=== PATIENT | male | born 1960 | race Caucasian/White ===

== ENCOUNTER 2017-10-06 17:21 | Emergency (ER) | payer OTHER ==
[2017-10-06 17:30] VITALS: RESP 18; TEMP 98.8
[2017-10-06 17:32] VITALS: BMI 32.8
--- NOTE | 2017-10-06 18:41 | ED PDOC ---
Arrival/HPI - General Chief Complaint: Lower Extremity Problem/Injury Time Seen by Provider: 10/06/17 17:42 Historian: Patient, Family EM Caveat: Language Barrier - History of Present Illness Narrative History of Present Illness (Text): 10/06/17 18:33 Pt is a 57 yr old male with no significant PMH BIBA for right leg pain x 3 days. Pt speaks only Maltese but has family at bedside to translate. Pt reports having insidious onset to pain of the right leg that is described as starting in the buttocks and radiating to the low back and down the right leg to the right midfoot. Worse on standing and walking and better on rest. Describes pain as burning and traveling between the low back and right foot. 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 Denies chest pain, shortness of breath, fever, chills, trauma, nausea, vomiting, diarrhea, change it bladder or bowel, saddle paresthesia, recent travel or any other complaint. Time/Duration: 24 hours Symptom Onset: Gradual Symptom Course: Worsening Quality: Aching, Pressure, Burning Severity Level: 8 Activities at Onset: Light Context: Home Past Medical History - Provider Review Nursing Documentation Reviewed: Yes - Travel History Have you recently traveled outside [place] w/in the past 3 mons?: No - Cardiac Hx Cardiac Disorders: No - Psychiatric Hx Substance Use: No Family/Social History - Physician Review Nursing Documentation Reviewed: Yes Family/Social History: Unknown Family HX Smoking Status: Former Smoker Hx Alcohol Use: No Hx Substance Use: No Allergies/Home Meds Allergies/Adverse Reactions: Allergies No Known Allergies Allergy (Verified 10/06/17 18:32) Review of Systems - Review of Systems Systems not reviewed;Unavailable: Language Barrier Constitutional: Normal Eyes: Normal ENT: Normal Respiratory: Normal. absent: SOB, Cough Cardiovascular: Normal. absent: Chest Pain, Palpitations, Edema, Calf Pain Gastrointestinal: Normal. absent: Abdominal Pain, Stool Changes, Constipation, Diarrhea, Nausea, Vomiting, Appetite Changes, Hematochezia, Hematemesis Genitourinary Male: Normal. absent: Dysuria, Frequency Musculoskeletal: Normal, Back Pain. absent: Arthralgias, Neck Pain, Joint Swelling, Myalgias Skin: Normal Neurological: Normal, Gait Changes. absent: Headache, Dizziness, Focal Weakness Endocrine: Normal Hemo/Lymphatic: Normal Psychiatric: Normal Physical Exam Vital Signs Reviewed: Yes Vital Signs Temp Pulse Resp BP Pulse Ox 10/06/17 21:28 62 18 124/76 98 10/06/17 17:29 98.8 F 60 18 130/70 99 Temperature: Afebrile Blood Pressure: Normal Pulse: Regular Respiratory Rate: Normal Appearance: Positive for: Well-Appearing, Non-Toxic, Comfortable Pain Distress: Moderate Mental Status: Positive for: Alert and Oriented X 3 - Systems Exam Head: Present: Atraumatic, Normocephalic Pupils: Present: PERRL Extroacular Muscles: Present: EOMI Conjunctiva: Present: Normal Mouth: Present: Moist Mucous Membranes Neck: Present: Normal Range of Motion. No: Meningeal Signs, MIDLINE TENDERNESS , Paraspinal Tenderness Respiratory/Chest: Present: Clear to Auscultation, Good Air Exchange. No: Respiratory Distress, Accessory Muscle Use Cardiovascular: Present: Regular Rate and Rhythm, Normal S1, S2. No: Murmurs Abdomen: Present: Normal Bowel Sounds. No: Tenderness, Distention, Peritoneal Signs, Rebound, Guarding, McBurney's Point Tender, Rovsing's Sign Present Back: Present: Normal Inspection, Pain with Leg Raise (right side). No: CVA Tenderness, Midline Tenderness, Paraspinal Tenderness, Decubitus Ulcer Upper Extremity: Present: Normal Inspection, Normal ROM, NORMAL PULSES. No: Cyanosis, Edema Lower Extremity: Present: Normal Inspection, NORMAL PULSES, Normal ROM, Neurovascularly Intact (strength of LE 5/5 on active resisted and SILT throughout), Capillary Refill < 2 s. No: Edema, CALF TENDERNESS, Cyanosis, Alexandre's Sign, Tenderness, Swelling, Erythema, Deformity, Temperature Abnormalties Neurological: Present: GCS=15, CN II-XII Intact, Speech Normal, Motor Func Grossly Intact, Normal Sensory Function. No: Gait Normal Skin: Present: Warm, Dry, Normal Color. No: Rashes Psychiatric: Present: Alert, Oriented x 3, Normal Insight, Normal Concentration Medical Decision Making ED Course and Treatment: 10/06/17 18:41 Impression Pt is a 57 yr old male with no significant PMH BIBA for right leg pain x [address] w/o contrast labs and UA assess and dispo Progress Note 10/06/17 21:07 IMPRESSION: At L4-L5 level, diffuse disc bulge with significant ligamentum hypertrophy causing relative Mild to moderate central canal stenosis with neuroforaminal narrowing at the inferior aspect. Pt very reluctant to get out of bed for fear of pain that he felt earlier; with assistance from 2 sons at bedside, pt sat up in bed w/o issue and can stand placing 60% weight into right leg; pt made multiple attempts and was finally able to stand; continues to have pain primarily in Low back and buttocks crutches were fitted for pt to assist him but pt declined Advised to f/u with Dr Lucille Molina in clinic tomorrow for further evaluation and interventional pain management VSS, A&Ox3 and pain 04/03 while resting Placed in wheelchair on d/c as requested by family f/u with PMD - Lab Interpretations Lab Results: 10/06/17 18:59 10/06/17 18:59 Lab Results 10/06/17 18:59: Sodium 144, Potassium 4.1, Chloride 103, Carbon Dioxide 30, Anion Gap 15, BUN 15, Creatinine 0.9, Est GFR ( Amer) > 60, Est GFR (Non- Af Amer) > 60, Random Glucose 108, Calcium 9.3, Total Bilirubin 0.6, AST 23, ALT 14, Alkaline Phosphatase 33 L, Total Protein 7.4, Albumin 4.2, Globulin 3.2 , Albumin/Globulin Ratio 1.3 10/06/17 18:59: WBC 5.3, RBC 4.35, Hgb 12.8 L, Hct 37.8 L, MCV 86.9, MCH 29.4, MCHC 33.9, RDW 13.3, Plt Count 198, MPV 10.7, Gran % 53.7, Lymph % (Auto) 38.3 H , [place] % (Auto) 6.1 H, Eos % (Auto) 1.5, Baso % (Auto) 0.4, Gran # 2.82, Lymph # (Auto) 2.0, [place] # (Auto) 0.3, Eos # (Auto) 0.1, Baso # (Auto) 0.02 - RAD Interpretation Narrative RAD Interpretations (Text): 10/06/17 21:07 IMPRESSION: At L4-L5 level, diffuse disc bulge with significant ligamentum hypertrophy causing relative Mild to moderate central canal stenosis with neuroforaminal narrowing at the inferior aspect. Radiology Orders: 10/06/17 18:32 LUMBAR SPINE W/O CONTRAST [CT] Stat - Medication Orders Current Medication Orders: Discontinued Medications Gabapentin (Neurontin) 300 mg PO STAT SWETHA PRN Reason: Protocol Last Admin: 10/06/17 21:23 Dose: 300 mg Ketorolac Tromethamine (Toradol) 30 mg IM STAT STA Stop: 10/06/17 21:25 Last Admin: 10/06/17 22:24 Dose: 30 mg MAR Pain Assessment Document 10/06/17 22:24 LA (Rec: 10/06/17 22:24 LA [place] [id number]) Pain Reassessment Is this a pain reassessment? No Sleep Is patient sleeping during reassessment? Yes Description Intensity of Pain at present 4 IM Administration Charges Document 10/06/17 22:24 LA (Rec: 10/06/17 22:24 LA [id number]) Charges for Administration # of IM Administrations 1 Morphine Sulfate (Morphine) 4 mg IVP STAT STA Stop: 10/06/17 18:46 Last Admin: 10/06/17 19:54 Dose: 4 mg MAR Pain Assessment Document 10/06/17 19:54 GMD (Rec: 10/06/17 19:54 GMD [id number]) Pain Reassessment Is this a pain reassessment? No IVP Administration Document 10/06/17 19:54 GMD (Rec: 10/06/17 19:54 GMD [id number]) Charges for Administration # of IVP Administrations 1 Ondansetron HCl (Zofran Inj) 4 mg IVP STAT STA Stop: 10/06/17 18:47 Last Admin: 10/06/17 19:53 Dose: 4 mg IVP Administration Document 10/06/17 19:53 GMD (Rec: 10/06/17 19:53 GMD [id number]) Charges for Administration # of IVP Administrations 1 Disposition/Present on Arrival - Present on Arrival Any Indicators Present on Arrival: Yes History of DVT/PE: No History of Uncontrolled Diabetes: No Urinary Catheter: No History of Decub. Ulcer: No History Surgical Site Infection Following: None - Disposition Have Diagnosis and Disposition been Completed?: Yes Diagnosis: Lumbar back pain with radiculopathy affecting right lower extremity, Stenosis, spinal, lumbar, Lumbar herniated disc Disposition: HOME/ ROUTINE Disposition Time: 21:23 Patient Plan: Discharge Condition: STABLE Discharge Instructions (ExitCare): Herniated Disc (DC), Spinal Stenosis (DC) Additional Instructions: SWETHA MAY, thank you for letting us take care of you today. Your provider was Ellis Monteiro MD and YOUNG Campbell and you were treated for Lumbar Radiculopathy. The emergency medical care you received today was directed at your acute symptoms. If you were prescribed any medication, please fill it and take as directed. It may take several days for your symptoms to resolve. Return to the Emergency Department if your symptoms worsen, do not improve, or if you have any other problems. Please follow up with the specialist we have recommended, Saturday Please contact your doctor or call one of the physicians/clinics you have been referred to that are listed on the Patient Visit Information form that is included in your discharge packet. Bring any paperwork you were given at discharge with you along with any medications you are taking to your follow up visit. Our treatment cannot replace ongoing medical care by a primary care provider outside of the emergency department. Thank you for allowing the [facility] team to be part of your care today. If you had an X-Ray or CT scan: A Radiologist will review the ED reading if any change in treatment is needed we will contact you. I Prescriptions: Gabapentin [Neurontin] 300 mg PO TID 5 Days #15 cap traMADol [Ultram] 50 mg PO TID #15 tab Referrals: Sebastien Molina MD [Staff Provider] - Follow up with primary Forms: M_SOLUTION (Surinamese)
[2017-10-06] MEDS ORDERED: Morphine 4 mg/ml ISec IVP STA (18:45)
[2017-10-06 19:08] LABS: BASO # 0.02 K/mm3 (0.0-2.0); BASO % 0.4 % (0.0-3.0); EOS # 0.1 (0.0-0.7); EOS % 1.5 % (1.5-5.0); GRAN # 2.82 (1.4-6.5); GRAN % 53.7 % (50.0-68.0); HEMOGLOBIN 12.8 g/dL (14.0-18.0); LYMPH % 38.3 % (22.0-35.0); MEAN CELL VOLUME 86.9 fl (80.0-105.0); MEAN CORPUSCULAR HEMOGLOBIN 29.4 pg (25.0-35.0); MEAN CORPUSCULAR HGB CONC 33.9 g/dl (31.0-37.0); MEAN PLATELET VOLUME 10.7 fl (7.0-11.0); MONO # 0.3 (0.1-0.6); MONO % 6.1 % (1.0-6.0); RBC 4.35 10^6/uL (3.5-6.1); RED CELL DISTRIBUTION WIDTH 13.3 % (11.5-14.5); WHITE BLOOD COUNT 5.3 10^3/ul (4.5-11.0)
[2017-10-06 19:19] LABS: ALB/GLOB RATIO 1.3 (1.1-1.8); ALBUMIN 4.2 g/dL (3.0-4.8); ALT/SGPT 14 U/L (7-56); AST/SGOT 23 U/L (17-59); BLOOD UREA NITROGEN 15 mg/dL (7-21); CALCIUM 9.3 mg/dL (8.4-10.5); GFR AFRICAN-AMERICAN > 60; GFR NON-AFRICAN AMERICAN > 60
[2017-10-06 21:29] VITALS: BP 124/76; PULSE 62; O2SAT 98
--- NOTE | 2017-10-07 09:44 | CT ---
Date of service: 10/06/2017 PROCEDURE: CT Lumbar Spine without contrast HISTORY: R/O disc herniation COMPARISON: None. TECHNIQUE: Axial computed tomography images were obtained of the lumbar spine without the use of intravenous contrast. Coronal and sagittal reformatted images were created and reviewed. Radiation dose: Total exam DLP = 1137.73 the the mGy-cm. This CT exam was performed using one or more of the following dose reduction techniques: Automated exposure control, adjustment of the mA and/or kV according to patient size, and/or use of iterative reconstruction technique. FINDINGS: VERTEBRAE: Unremarkable. No fracture. . There is a mild dextroscoliosis which could be secondary to side bending of the upper torso to the left. The the the. DISCS/SPINAL CANAL/NEURAL FORAMINA: L1-2: Disc space height maintained. No disc herniation or significant disc bulge. Central canal and exit foramina adequate. . L2-3: Displaced height maintained. Small broad-based disc bulge extends into the proximal inferior margins of both exit foramina. The facets are hypertrophic and flavum buckled. There is bilateral lateral recess and central canal stenosis former more so than latter. L3-4: Minor posterior disc space narrowing. Small broad-based bulge of the posterior annulus also extends into the proximal inferior margins of both exit foramina. Facets are hypertrophic and flavum buckled. There is mild bilateral lateral recess and central canal stenosis (former more so than latter) with compression of the ventral surface of the thecal sac. The exit foramina are adequate. . L4-5: At the C4-C5 level, there is disc space narrowing more so along the posterior disc margin. Broad-based disc bulge ridge complex extends slightly into the proximal inferior margins of both exit foramina. Facets are hypertrophic and ligamentum flavum buckled. The changes result in moderate to fairly significant bilateral lateral recess and central canal stenosis and compression of the thecal sac. The exit foramina appear adequate on the left and narrowed on the right. L5-S1: Unremarkable. PARASPINAL SOFT TISSUES: Unremarkable. OTHER FINDINGS: Sclerotic changes both SI joints with partial bony fusion. IMPRESSION: No acute fractures. Multilevel degenerative spondylosis most significantly affecting the L4-L5 through the L2-L3 L4 levels mild with bilateral lateral recess and central canal stenosis as well as the compressive effects on the thecal sac as described above.
== END 2017-10-06 22:27 | disposition home or self-care (01) ==
LOC: ED 17:21
DX: M51.16 Intervertebral disc disorders with radiculopathy, lumbar region (principal); M48.061 Spinal stenosis, lumbar region without neurogenic claudication
CPT/HCPCS: 72131; 80053; 85025; 96372; 96374; 96375; 99284; J1885; J2270; J2405